=== PATIENT | male | born 1995 ===

== ENCOUNTER 2021-09-29 16:04 | Emergency (ER) | payer SELFPAY ==
[2021-09-29] MEDS ORDERED: LIDOCAINE (1%) 10 MG/1 ML VIAL 20 ML MDV INFILTRATI ONE (19:00)
--- NOTE | 2021-09-29 19:10 | XRay Report ---
Right foot 3 views INDICATION: Right foot pain after injury IMPRESSION: Dislocation involving the third toe at the PIP joint. Signer Name: Vladislav Beth MD Signed: 09/29/2021 7:06 PM Workstation Name: [id number]
--- NOTE | 2021-09-29 21:24 | XRay Report ---
Right foot 2 views INDICATION: Right foot pain. IMPRESSION: Reduction of the third toe dislocation noted. Signer Name: Vladislav Beth MD Signed: 09/29/2021 9:20 PM Workstation Name: [email or web address]
--- NOTE | 2021-09-29 21:32 | Emergency Department Report ---
ED Lower Extremity HPI - General Chief Complaint: Extremity Injury, Lower Stated Complaint: WORK INJURY Source: patient Mode of arrival: Ambulatory Limitations: No Limitations - History of Present Illness Initial Comments: Patient is a 26-year-old male with no past medical history presents to the ED with complaint of acute onset persistent right foot pain due to right plantar foot laceration wound and a dislocated right third toe after he jumped from a table onto a floor at work 2 days ago and sustained right third toe dislocation and right plantar foot puncture wound. Patient states that he was initially evaluated at [facility] urgent care where the right plantar foot laceration wound was sutured. Patient states that this tried multiple times to reduce the right third toe dislocation without success. Patient states that he followed up at the [facility] urgent care clinic about 6 hours prior to arrival in the ED and was referred to the ED for evaluation after unsuccessful reduction of the right third toe dislocation. Patient states that he is up-to-date with his tetanus vaccination. Patient also states that he is currently taking ibuprofen and Keflex that was prescribed by the provider at at [facility] urgent care. Patient denies fever, chills, nausea and vomiting, numbness and tingling or weakness of right foot, dizziness, syncope, chest pain or shortness of breath. MD Complaint: foot injury (right foot pain, right 3rd toe dislocation), other (right foot laceration) -: Sudden, days(s) (2) Injury: Foot: Right (laceration of right plantar foot), Toes: Right (right 3rd toe dislocation) Type of Injury: laceration Place: work Severity: severe Severity scale (0 -10): 7 Improves With: NSAID Worsens With: movement, palpation Context: fall, direct blow, jumping Associated Symptoms: able to partially bear weight. denies: snap/pop sensation, tingling, unable to bear weight, ambulatory Treatments Prior to Arrival: NSAIDS - Related Data Previous Rx's Medication Instructions Recorded Last Taken Type Sulfamethoxazole/Trimethoprim 1 each PO Q12H #20 tab 09/29/21 Unknown Rx [Bactrim DS TAB] Allergies Allergy/AdvReac Type Severity Reaction Status Date / Time No Known Allergies Allergy Verified 09/29/21 16:46 ED Review of Systems ROS: Stated complaint: WORK INJURY Other details as noted in HPI Constitutional: denies: chills, fever Eyes: denies: eye pain, eye discharge, vision change ENT: denies: ear pain, throat pain Respiratory: denies: cough, shortness of breath, wheezing Cardiovascular: denies: chest pain, palpitations Endocrine: no symptoms reported Gastrointestinal: denies: abdominal pain, nausea, diarrhea Genitourinary: denies: urgency, dysuria Musculoskeletal: arthralgia (Right plantar foot and third toe pain with deformity and swelling). denies: back pain, joint swelling Skin: other (Sutured right plantar foot laceration wound). denies: rash, lesions Neurological: denies: headache, weakness, paresthesias Psychiatric: denies: anxiety, depression, auditory hallucinations, visual hallucinations Hematological/Lymphatic: denies: easy bleeding, easy bruising ED Past Medical Hx - Medications Home Medications: Home Medications Medication Instructions Recorded Confirmed Last Taken Type Sulfamethoxazole/Trimethoprim 1 each PO Q12H #20 tab 09/29/21 Unknown Rx [Bactrim DS TAB] ED Physical Exam - General Limitations: No Limitations General appearance: alert, in no apparent distress - Head Head exam: Present: atraumatic, normocephalic, normal inspection - Eye Eye exam: Present: normal appearance, PERRL, EOMI Pupils: Present: normal accommodation - ENT ENT exam: Present: normal exam, normal orophraynx, mucous membranes moist, TM's normal bilaterally, normal external ear exam - Neck Neck exam: Present: normal inspection, full ROM. Absent: tenderness, lymphadenopathy, thyromegaly - Respiratory Respiratory exam: Present: normal lung sounds bilaterally. Absent: respiratory distress, wheezes, rales, rhonchi, chest wall tenderness, decreased breath sounds - Cardiovascular Cardiovascular Exam: Present: regular rate, normal rhythm, normal heart sounds. Absent: systolic murmur, diastolic murmur, rubs, gallop - GI/Abdominal GI/Abdominal exam: Present: soft, normal bowel sounds. Absent: tenderness, guarding, rebound, hyperactive bowel sounds, hypoactive bowel sounds, organomegaly, mass - Extremities Exam Extremities exam: Present: normal inspection, full ROM, tenderness (Palpable right foot tenderness due to a sutured plantar foot laceration;), normal capillary refill, other (Mildly deformed right third toe). Absent: pedal edema, joint swelling, calf tenderness - Back Exam Back exam: Present: normal inspection, full ROM. Absent: tenderness, CVA tenderness (R), CVA tenderness (L), muscle spasm, paraspinal tenderness, vertebral tenderness - Neurological Exam Neurological exam: Present: alert, oriented X3, CN II-XII intact, normal gait, reflexes normal - Psychiatric Psychiatric exam: Present: normal affect, normal mood - Skin Skin exam: Present: warm, dry, intact, normal color. Absent: rash ED Course Vital Signs 09/29/21 16:45 Temperature 98.3 F Pulse Rate 95 H Respiratory 16 Rate Blood Pressure 161/78 O2 Sat by Pulse 98 Oximetry - Orthopedic Joint Reduction Joint #1 Consent Obtained: verbal consent Time Out Performed: Yes Side: right Joint Reduction Location: toe (Right third toe) Analgesia: digital block Local Anesthetic Used: Lidocaine 1% Amount of Anesthetic Used (mls): 6 Shoulder Technique Used (if applicable): traction/counter-traction, external rotation Technique Used: traction/counter-traction, direct manipulation Post-Reduction Neuro Exam: intact Post-Reduction Vascular Exam: intact Post Reduction X-Ray Obtained: Yes Post Reduction X-Ray Results: reduced Splint Applied: Yes (Nigel tape) Patient Tolerated Procedure: well ED Lower Extremity MDM - Radiology Data Radiology results: report reviewed, image reviewed [facility] [address] [place] [address] XRay Report Signed Patient: NANCY GARCIA MR#: [id number] : 1995 Acct:[id number] Age/Sex: 26 / M ADM Date: 09/29/21 Loc: ED Attending Dr: Ordering Physician: GEORGE BAUTISTA Date of Service: 09/29/21 Procedure(s): XR foot 3+V RT Accession Number(s): [id number] cc: GEORGE BAUTISTA Fluoro Time In Minutes: Right foot 3 views INDICATION: Right foot pain after injury IMPRESSION: Dislocation involving the third toe at the PIP joint. Signer Name: Vladislav Beth MD Signed: 09/29/2021 7:06 PM Workstation Name: [id number] Transcribed By: BHUMIKA Dictated By: Vladislav Beth MD Electronically Authenticated By: Vladislav Beth MD Signed Date/Time: 09/29/211905 DD/ 05 TD/TT: [facility] [address] [place] [address] XRay Report Signed Patient: NANCY GARCIA MR#: [id number] : 1995 Acct:[id number] Age/Sex: 26 / M ADM Date: 09/29/21 Loc: ED Attending Dr: Ordering Physician: GEORGE BAUTISTA Date of Service: 09/29/21 Procedure(s): XR foot 2V RT Accession Number(s): [id number] cc: GEORGE BAUTISTA Fluoro Time In Minutes: Right foot 2 views INDICATION: Right foot pain. IMPRESSION: Reduction of the third toe dislocation noted. Signer Name: Vladislav Beth MD Signed: 09/29/2021 9:20 PM Workstation Name: [id number] Transcribed By: Dictated By: Vladislav Beth MD Electronically Authenticated By: Vladislav Beth MD Signed Date/Time: 09/29/212119 DD/ 19 TD/TT: - Medical Decision Making This is a 26-year-old male with no past medical history presents to the ED with complaint of acute onset persistent right foot pain due to right plantar foot laceration wound and a dislocated right third toe after he jumped from a table onto a floor at work 2 days ago and sustained right third toe dislocation and right plantar foot puncture wound. Patient states that he was initially evaluated at [facility] urgent care where the right plantar foot laceration wound was sutured. Patient states that this tried multiple times to reduce the right third toe dislocation without success. Patient states that he followed up at the [facility] urgent care clinic about 6 hours prior to arrival in the ED and was referred to the ED for evaluation after unsuccessful reduction of the right third toe dislocation. Patient states that he is up-to-date with his tetanus vaccination. Patient also states that he is currently taking ibuprofen and Keflex that was prescribed by the provider at [facility] urgent care. In the ED, patient is alert and oriented x3 and is not in any distress. Right foot x- ray showed dislocation involving the third toe at the PIP joint. The right third toe dislocation was reduced manually in the ED after application of local anesthesia as a digital block. The post reduction right foot x-ray showed complete reduction of the third toe dislocation noted. Patient tolerated the procedure well. The right third toe was dressed appropriately with a nigel tape and the patient was discharged home on prophylactic antibiotics and advised to follow-up with the orthopedic surgeon Dr. Lim for further evaluation. On reevaluation, patient is neurovascularly intact. Patient was advised return to the ED immediately if symptoms get worse. - Differential Diagnosis Toe dislocation; foot contusion; foot sprain; foot laceration Critical care attestation.: If time is entered above; I have spent that time in minutes in the direct care of this critically ill patient, excluding procedure time. ED Disposition Clinical Impression: Dislocation of third toe, right, closed Qualifiers: Encounter type: initial encounter Qualified Code(s): S93.104A - Unspecified dislocation of right toe(s), initial encounter Laceration of right foot without foreign body Qualifiers: Encounter type: initial encounter Qualified Code(s): S91.311A - Laceration without foreign body, right foot, initial encounter Contusion of right foot including toes Qualifiers: Encounter type: initial encounter Qualified Code(s): S90.31XA - Contusion of right foot, initial encounter; S90.121A - Contusion of right lesser toe(s) without damage to nail, initial encounter Disposition: 01 HOME / SELF CARE / HOMELESS Is pt being admited?: No Does the pt Need Aspirin: No Condition: Stable Instructions: Foot Contusion, [id number], Toe Dislocation, [id number], Crush Injury of the Foot, [id number], Sutured Wound Care, [id number] Additional Instructions: Take medication with food, drink plenty of fluids, follow-up with the orthopedic surgeon Dr. Lim as advised in 3 days. Full return to the ED immediately if symptoms get worse. Continue taking the previously prescribed pain medication and the new prescription of oral antibiotics. Return to the ED immediately if symptoms get worse. Prescriptions: Sulfamethoxazole/Trimethoprim [Bactrim DS TAB] 1 each PO Q12H #20 tab Referrals: GURVINDER LIM MD [Staff Physician] - 3-5 Days Forms: Work/School Release Form(ED) Time of Disposition: 21:53 Print Language: ROMANSH
[2021-09-29 22:33] VITALS: BP 142/72
== END 2021-09-29 22:34 | disposition home or self-care (01) ==
LOC: ED 16:04
DX: S93.104A Unspecified dislocation of right toe(s), initial encounter (principal); S91.311A Laceration without foreign body, right foot, initial encounter; X58.XXXA Exposure to other specified factors, initial encounter; Y93.89 Activity, other specified; Y92.89 Other specified places as the place of occurrence of the external cause; Y99.8 Other external cause status
CPT/HCPCS: 99283